=== PATIENT | male | born 2000 | race Caucasian/White ===

== ENCOUNTER 2021-05-02 14:54 | Emergency (ER) | payer MEDICAID ==
[~2021-05-02] VITALS: Ht 185.4 cm; Wt 66.8 kg
[2021-05-02] MEDS ORDERED: IBUPROFEN 600 MG TABLET PO ONE (15:30)
[2021-05-02 16:06] VITALS: BP 110/47
== END 2021-05-02 16:32 | disposition home or self-care (01) ==
LOC: EMS 14:59
DX: S93.401A Sprain of unspecified ligament of right ankle, initial encounter (principal); F12.90 Cannabis use, unspecified, uncomplicated; X50.1XXA Overexertion from prolonged static or awkward postures, initial encounter; Y93.89 Activity, other specified; Y92.89 Other specified places as the place of occurrence of the external cause; Y99.8 Other external cause status
CPT/HCPCS: 99283